=== PATIENT | female | born 1985 | race Caucasian/White ===

== ENCOUNTER 2021-09-19 07:44 | Emergency (ER) | payer OTHER ==
[~2021-09-19 07:44] MED LIST: CIPRO500 MG PO; METRONIDAZOLE500 MG PO; ZOFRAN4 MG PO
[2021-09-19 09:17] LABS: BASOPHIL 0.2 % (0-2); EOSINOPHIL 0 % (0-5); HCT 40.1 % (37.0-47.0); HGB 13.2 g/dl (12.5-16.0); LYMPHOCYTE 9.4 % (15-48); MCH 28.5 pg (25.0-31.0); MCHC 32.9 g/dL (32.0-36.0); MCV 86.6 fL (78.0-100.0); MONOCYTE 1.8 % (0-12); MPV 11.2 fL (6.0-9.5); NRBC 0; PLT 193 K/uL (150-400); RBC 4.63 M/uL (4.20-5.40); RDW 13.2 % (11.5-14.0); WBC 11.4 K/uL (4.0-10.5)
[2021-09-19 09:32] LABS: LACTIC ACID 2.5 mmol/L (0.4-1.9)
[2021-09-19 09:55] LABS: CREATININE 0.57 mg/dL (0.51-0.95); POTASSIUM 3.7 mmol/L (3.5-5.1); TOTAL PROTEIN 8.1 g/dL (6.4-8.2)
[2021-09-19 09:56] LABS: ALBUMIN 3.1 g/dL (3.4-5.0); BILIRUBIN - TOTAL 0.2 mg/dL (0.2-1.0)
== END 2021-09-19 13:16 | disposition home or self-care (01) ==
LOC: FER 07:44
PROVIDERS: Emergency Medicine
DX: U07.1 COVID-19 (principal)
CPT/HCPCS: 36415; 71275; 80053; 82728; 83605; 84145; 85025; 86140; 93005; J7030; Q9967